=== PATIENT | male | born 1960 | race Caucasian/White ===

== ENCOUNTER → 2017-11-03 16:41 | Outpatient (CLI) | payer OTHER, SELFPAY ==
[2017-11-03 18:14] LABS: Anion Gap 9 (5-15); BUN 16 mg/dL (7-18); BUN/Creat Ratio 18.6 RATIO (10-20); Calcium,Total 8.8 mg/dL (8.5-10.1); Chloride 108 mmol/L (98-107); Cholesterol 180 mg/dL (200); Creatinine, Serum 0.86 mg/dL (0.70-1.30); EST Glomerular Filtration Rate 98 mL/min (>60); Est Glom Filt Rate - Afr Amer 118 mL/min (>60); Glucose 93 mg/dL (74-106); High Density Lipoprotein 45 mg/dL; Sodium Level 143 mmol/L (136-145); Triglycerides 150 mg/dL; Very Low Density Lipoprotein 30 mg/dL (5-40)
== END ==
PROVIDERS: Family Provider Family Medicine; PCP Family Medicine; Visit Provider Family Medicine
DX: I10 Essential (primary) hypertension (principal)
CPT/HCPCS: 36415; 80048; 80061

== ENCOUNTER → 2017-12-03 14:14 | Outpatient (CLI) | payer OTHER, SELFPAY ==
[2017-12-03 15:55] LABS: Absolute Lymphocyte Count 2.45 X10^3/ul (0.83-4.51); Absolute Neutrophil Count 6.7 X10^3/uL (2.0-7.7); Basophil# 0.02 X10^3/uL; Basophil% 0.2 % (0-1); Eosinophil# 0.11 X10^3/uL; Eosinophils% 1.1 % (0-5); Hemoglobin 15.1 g/dl (13.0-16.5); Lymphocyte # 2.45 X10^3/ul (4.0); Lymphocyte % 24.6 % (19-41); Mean Corp Hgb Conc 34.3 g/gl (32-36); Mean Corpuscular Hgb 30.5 pg (27.0-32.0); Mean Corpuscular Volume 88.9 fL (80-94); Mean Platelet Vol. 9.5 fl (6.2-12.0); Monocyte# 0.62 X10^3/uL; Monocyte% 6.2 % (0-10); Neutrophil # 6.68 X10^3/uL (2.7-7.7); Neutrophil % 67.2 % (47-70); Platelet Count 295 K/mm3 (150-450); RBC Distribution Width CV 13.1 % (11.6-14.6); Red Blood Count 4.95 M/mm3 (4.6-6.2)
[2017-12-03 17:03] LABS: POSITIVE COUNT NO; POSITIVE DIFFERENTIAL NO; POSITIVE MORPHOLOGY NO
== END ==
PROVIDERS: Family Provider Family Medicine; PCP Family Medicine; Visit Provider Family Medicine
DX: R58 Hemorrhage, not elsewhere classified (principal)
CPT/HCPCS: 36415; 85025

== ENCOUNTER → 2019-05-26 12:28 | Outpatient (CLI) | payer OTHER, SELFPAY ==
[2016-12-24 10:27] VITALS: BMI 44.5
--- NOTE | 2019-05-26 12:33 | RAD_ITS ---
STUDY: X-RAY - RIGHT KNEE REASON FOR EXAM: Male, 58 years old. CHRONIC KNEE PAIN, NO INJURY TECHNIQUE: 5 view(s) of the knee. COMPARISON: None. FINDINGS: Normal visualized distal femur. Normal visualized proximal tibia and fibula. Normal proximal tibiofibular articulation. Enthesophyte of the patella. There is moderate degenerative arthrosis of the medial femorotibial compartment with moderate joint space narrowing. There is mild degenerative arthrosis of the lateral femorotibial compartment. There is moderate degenerative arthrosis of the patellofemoral articulation. There is a soft tissue prominence in the suprapatellar region suggesting a small volume joint effusion. The soft tissue structures are unremarkable. RAD/Knee 4 or More Views IMPRESSION: Normally located knee without fracture, osteolytic or blastic bone lesion. Moderate degenerative arthrosis of the medial and patellofemoral compartments. Mild degenerative narrowing of the lateral compartment. Enthesophytes of the anterior patella. Small joint effusion. Electronically Signed: Marcela Dickson MD at 22:27 EST , Service support ,
== END ==
PROVIDERS: Family Provider Family Medicine; PCP Family Medicine; Referring Provider Family Medicine; Visit Provider Family Medicine
DX: S83.91XA Sprain of unspecified site of right knee, initial encounter (principal)
CPT/HCPCS: 73564

== ENCOUNTER → 2019-12-07 13:57 | Outpatient (CLI) | payer BC, SELFPAY ==
--- NOTE | 2019-12-07 14:03 | VDLE_ITS ---
Reason For Study: Swelling RIGHT LEFT CFV is compressible, spontaneous, phasic, GSV is normal. competent and demonstrates normal CFV is compressible, spontaneous, phasic, augmentation. competent, and demonstrates normal Procedure augmentation. Exam performed in department. FV is compressible, spontaneous, phasic, A preliminary report was called and/or faxed competent and demonstrates normal to Pat. augmentation. POP V is compressible, spontaneous, phasic, competent and demonstrates normal augmentation. T/P Trunk is compressible. PTV is compressible. LT PerV is compressible. Interpretation Summary Deep veins of the left lower extremity are patent and compressible segmentally. There is no evidence of left lower extremity deep vein thrombosis. Valvular competence appears intact within the proximal deep venous system on the left . The left great saphenous vein appears patent and compressible segmentally. Ordering Physician: Roslyn Stewart Referring Physician: Roslyn Stewart Performed By: Suri Montenegro RVT and Student
== END ==
PROVIDERS: PCP Family Medicine; Referring Provider Family Medicine; Visit Provider Family Medicine
DX: M79.89 Other specified soft tissue disorders (principal)
CPT/HCPCS: 93971

== ENCOUNTER 2020-07-11 13:30 | Outpatient (RCR) | payer BC, SELFPAY ==
--- NOTE | 2020-06-26 14:46 | HP.PTEVAL_ITS ---
Patient's Visit Information ASHLEY PRINGLE is a 59 year old M referred to Physical Therapy by Dr. Bert Austin DO with a diagnosis of bursitis, cervical radiculopathy. Date of Evaluation: 06/26/20 Physical Therapist: Rodney Hinojosa, DPT, OCS, CSCS - Visit Plan Frequency: 3x /Week Duration: 4-6 Weeks Plan: 3x/week for 3-6 weeks for. 1. RC and postural strength for bursitis R. 2. Manual ROM neck emphasizing retraction and progression of forces. 3. manual traction to mechanical cervical traction each visit monitor R thumb numbness, cervical ROM, R shoulder pain. postural focus - Subjective Same pain as a few years ago but opposite shoulder R. Family doctor sent to Dr. Ovalles who wanted MRI but needs PT first. Xrays and cortisone done at ortho and Meloxicam. Still cracks and pains when lift arm. Chiropractor did stim on neck and got some relief. Also get numb in thumb intermittently. Also achy and burny R shoulder when lifts arm. Dr. Uriarte did his last surgery. Very weak squeezing with R UE. It has been hurting for a couple months. Not sure why it started. Works moving [employer]. Worse after work but can't afford to take off. Takes tylenol after work. Drives truck most of time. Sleep is interrupted. Wakes up most nights in 2-3 hours and then uses ice. Activitiy is normal outside of work but it hurts. Basic ADLs are getting done himself. - Pain R shoulder. Pain Intensity (Out of 10): 4 Pain Intensity Range: 0, 8 - Objective Baseline pain at rest: no rests. Protrusion:Produces pain R arm and Produces UT R pain. c/s retraction x 15: P neck pain during, slight discomfort R neck more central. c/s ret/extx10: Produces neck pain during. After: W motion adn arm pain. Very tender over R supra tendon/bura area in shoulder. C/s AROM 33 ext with R pain neck, R rotation 50 adn L 70 and pain R. SB symmetrical. Flexion OK. - VAT. UE AROM WFL and without pain, feels be[place]. + HK, + Neer on R. + c/s compression R rotation. UE strength 4+/5 without pain in rotations and bi, tri, shoulder flexion, abd, empty can. Sensation wNL to gross light touch. Reflexes bi and tri 2/3 - Goals Goal 1:: Sleep without waking due to shoulder pain Goal Time Frame: 4-6 Weeks Goal 2:: Full cervical AROM without increased pain Goal Time Frame: 4-6 Weeks Goal 3:: Work wihtou noticing neck or shoulder discomfort Goal Time Frame: 4-6 Weeks Goal 4:: Quick DASH score of 17 or less Goal Time Frame: 4-6 Weeks Goal 5:: I approp HEP to limit future problems. Goal Time Frame: 4-6 Weeks - Rehabilitation Potential Physical Therapy Diagnosis: cervical radiculopathy, bursitis Rehabilitation Potential: Good - Anticipated Interventions Patient/Client Instruction: Educate patient on: Condition, Plan of Care For the Purpose of:: To decrease pain, To improve muscle performance and motor function, To increase tolerance to activity/condition/position, To improve ability of physical actions for home/community/work/leisure Therapeutic Exercise to Include: Strength training, Flexibilty training, Passive ROM, Active ROM, Rupinder Exercises, Scapular Strength/Stabilization For the Purpose of:: To decrease pain, To increase ROM, To improve muscle performance and motor function, To increase tolerance to activity/condition/position, To improve ability of physical actions for home/community/work/leisure Manual Therapy Techniques to Include: Mobilization, Passive ROM, Soft tissue mobilization For the Purpose of:: To decrease pain, To increase ROM, To improve ability to perform ADL's, To increase tolerance to activity/condition/position Thermo therapy (hot pack): Yes Intermittent cervical traction: Yes For the Purpose of:: To decrease pain, To increase ROM Thank you for the opportunity to evaluate your patient. For Medicare and Medicare HMO plans, please review the plan of care and approve it. It will need to be FAXED BACK to us at [phone] for Medicare purposes. For Medicare only, by signing this I certify the plan of care. Please let me know if there are questions or concerns regarding this plan of care. Physician Signature: Da te:
--- NOTE | 2020-08-26 09:43 | HP.PT.NRP ---
ASHLEY PRINGLE was seen in my office for initial evaluation on 06/26/20. The following Plan of Care was established for this patient: Initial Frequency: 3x /Week Initial Duration: 4-6 Weeks Patient/Client Instruction: Educate patient on: Condition, Plan of Care For the Purpose of:: To decrease pain, To improve muscle performance and motor function, To increase tolerance to activity/condition/position, To improve ability of physical actions for home/community/work/leisure Therapeutic Exercise to Include: Strength training, Flexibilty training, Passive ROM, Active ROM, Rupinder Exercises, Scapular Strength/Stabilization For the Purpose of:: To decrease pain, To increase ROM, To improve muscle performance and motor function, To increase tolerance to activity/condition/position, To improve ability of physical actions for home/community/work/leisure Manual Therapy Techniques to Include: Mobilization, Passive ROM, Soft tissue mobilization For the Purpose of:: To decrease pain, To increase ROM, To improve ability to perform ADL's, To increase tolerance to activity/condition/position Thermo therapy (hot pack): Yes Intermittent cervical traction: Yes For the Purpose of:: To decrease pain, To increase ROM This patient was last seen in our office 07/11/20. Pertinent comments regarding their Physical therapy will appear below: Pt seen 2 visits of POC then cancelled and no showed the rest. At this point, I will discontinue due to nonattendance as it has been over 6 weeks. At this point I will be discontinuing this patient from physical therapy. I would be happy to see this patient again in the future if found appropriate by the physician. Thank you! Rodney Hinojosa, DPT, OCS, CSCS
== END 2020-07-11 19:00 | disposition home or self-care (01) ==
LOC: PT 13:30
PROVIDERS: PCP Family Medicine; Visit Provider Orthopaedic Surgery
DX: M54.12 Radiculopathy, cervical region (principal); M25.811 Other specified joint disorders, right shoulder; M71.9 Bursopathy, unspecified
CPT/HCPCS: 97012; 97110; 97162

== ENCOUNTER → 2020-08-24 07:42 | Outpatient (CLI) | payer BC, SELFPAY ==
--- NOTE | 2020-08-24 07:57 | MRI_ITS ---
INDICATION: pain EXAMINATION: MRI - RIGHT MR Shoulder W/O Contrast TECHNIQUE: Multiplanar and multisequence MR images of the right shoulder. IV Contrast Dosage and Agent: None. COMPARISON: X-ray 06/17/2020 FINDINGS: BONE: No fracture or abnormal bone marrow signal. ACROMIOCLAVICULAR JOINT: Moderate acromioclavicular joint arthrosis with capsulitis. SUBACROMIAL-SUBDELTOID SPACE: No bursal fluid. GLENOHUMERAL JOINT: Articular cartilage intact. No joint effusion. No rotator interval edema. ROTATOR CUFF: Moderate supraspinatus and infraspinatus tendinosis and peritendinitis as with a 5 x 5 mm 50% depth joint surface partial-thickness tear of the distal conjoined tendon just proximal to the footprint. There is no cuff muscle atrophy. LABRUM: Fraying of the superior labrum. BICEPS TENDON: The extra-articular biceps tendon is in the bicipital groove. The intra-articular biceps tendon is normal. OTHER SOFT TISSUES: Unremarkable. MRI/Upper Ext Joint Only(Routine) IMPRESSION: 1. Moderate supraspinatus and infraspinatus tendinosis and peritendinitis as with a 5 x 5 mm 50% depth joint surface partial-thickness tear of the distal conjoined tendon just proximal to the footprint. No muscular atrophy. 2. Moderate acromioclavicular joint arthrosis with capsulitis.. Electronically Signed: Favian Wall MD at 6:48 EDT Tel , Service support ,
--- NOTE | 2020-08-24 07:57 | MRI_ITS ---
STUDY: MRI CERVICAL SPINE WITHOUT CONTRAST REASON FOR EXAM: Male, 59 years old. Neck pain, arm pain and radiculopathy. TECHNIQUE: Standardized fat and water weighted pulse sequences were obtained in the sagittal and axial planes. COMPARISON: No relevant priors. FINDINGS: Craniovertebral Junction Foramen Magnum: Normal. Brainstem Cervical Cord Junction: Normal. Atlanto-Occipital Articulation: Normal. Atlantoaxial Articulation (Anterior): Normal. Odontoid Process: Normal. Vertebrae, Alignment and Perivertebral Spaces: Vertebrae: Normal. Curvature: Straightening of the normal cervical lordosis. Alignment: Normal. Prevertebral Space: Normal. Prevertebral Muscles: Normal. Disc Space Levels N.B., Normal level statement indicates: Normal endplates; disc height, signal and morphology; facet joints; central canal, lateral recesses, and intervertebral neuroformina. C2-3: Normal. C3-4: Normal. C4-5: Normal. C5-6: Mild bilobed disc osteophyte complex and bilateral uncovertebral hypertrophy produces moderate spinal stenosis with abutment of the lateral aspect of the spinal cord and moderate right neural foraminal stenosis and mild left neural foraminal stenosis. C6-7: Mild broad disc osteophyte complex asymmetric to the left produces mild spinal stenosis and mild left neural foraminal stenosis. C7-T1: Normal. Cervical / Thoracic (Visualized) Cord Cervical Cord: Normal. Soft Tissue Neck Masses: None. Lymphadenopathy: None. Thyroid Gland: Normal. MRI/Spine Cervical (Routine) IMPRESSION: Degenerative disc disease lower cervical spine with straightening of the normal lordotic curvature. Electronically Signed: Favian Wall MD at 6:27 EDT Tel , Service support ,
== END ==
PROVIDERS: PCP Family Medicine; Referring Provider Orthopaedic Surgery; Visit Provider Orthopaedic Surgery
DX: M50.30 Other cervical disc degeneration, unspecified cervical region (principal); M54.12 Radiculopathy, cervical region; M19.011 Primary osteoarthritis, right shoulder; M75.41 Impingement syndrome of right shoulder; M25.311 Other instability, right shoulder
CPT/HCPCS: 72141; 73221

== ENCOUNTER → 2025-04-09 | Outpatient (CLI) | payer OTHER, SELFPAY ==
[2025-04-09 18:18] LABS: AST(SGOT) 16 U/L (<=37); Alanine Aminotransfer ALT/SGPT 11 U/L (<=46); Albumin, Serum 4.6 g/dL (3.4-4.8); Alkaline Phosphatase 54 U/L (40-129); Anion Gap 10 (5-15); BUN 18 mg/dL (4-19); BUN/Creat Ratio 23.3 RATIO (10-20); Calcium,Total 9.6 mg/dL (7.6-11.0); Carbon Dioxide 27.7 mmol/L (21.0-32.0); Chloride 102 mmol/L (98-108); Cholesterol 178 mg/dL (<=200); Globulin 3.2 g/dL (2.2-4.2); Glucose 98 mg/dL (70-99); Low Density Lipoprotein Calc. 112 mg/dL; PSA,Total - Annual Screen 7.60 ng/mL (0.02-4.00); Potassium 4.1 mmol/L (3.3-5.1); Triglycerides 88 mg/dL; Very Low Density Lipoprotein 18 mg/dL (5-40); cholesterol:hdl ratio screen 3.56
== END | disposition home or self-care (01) ==
LOC: MFPLAB 16:50
PROVIDERS: PCP Family Medicine; Visit Provider Family Medicine
DX: I10 Essential (primary) hypertension (principal); Z12.5 Encounter for screening for malignant neoplasm of prostate; Z13.220 Encounter for screening for lipoid disorders
CPT/HCPCS: 36415; 80053; 80061; 84153; G0103